=== PATIENT | male | born 1950 | race African-American/Black ===

== ENCOUNTER 2021-05-14 05:37 | Day surgery (SDC) | payer MEDICARE ==
[~2021-05-14] VITALS: Ht 180.3 cm; Wt 84.7 kg
[2021-05-14] VITALS (11 sets, daily range): BP systolic 115–157; BP diastolic 61–94; PULSE 56–79; TEMP 97.7–98.6
[2021-05-14] MEDS ORDERED: COREG 3.123.125 MG/T PO (06:20)
[2021-05-14] MEDS ORDERED: LIPITOR 40MG TA40 MG PO (06:20)
[2021-05-14] MEDS ORDERED: MASON NATURAL2000 IU PO (06:21)
[2021-05-14] MEDS ORDERED: VOLTAREN GEL 1%1 TU TP (06:22)
[2021-05-14] MEDS ORDERED: GLUCOPHAGE1000 MG PO (06:22)
[2021-05-14] MEDS ORDERED: PRINIVIL40 MG PO (06:22)
[2021-05-14] MEDS ORDERED: VIAGRA100 M1 PO (06:23)
[2021-05-14] MEDS ORDERED: LEVEMIR FLEX100 U/ML SQ (06:24)
[2021-05-14] MEDS ORDERED: NORVASC 10MG10 MG PO (06:24)
[2021-05-14] MEDS ORDERED: VICTOZA6 MG/ML SQ (06:25)
[2021-05-14] MEDS ORDERED: DESYREL 100MG100 MG PO (06:25)
[2021-05-14] MEDS ORDERED: PYRIDIUM 100MG100 MG PO (08:57)
--- NOTE | 2021-05-14 10:13 | NUR ---
PT TO ROOM 350 PER BED WITH REPORT FROM [facility] PAC[facility] @1727. PT IS A\O X3 IV TO LFA, CBI RUNNING SLOW WITH CLEAR URINE IN TOBIAS BAG. CATHETER 22FR TO LIGHT TENSION. PT DENIES PAIN AT THIS TIME. SENSATION TO T5. SPINAL EFFECTIVE. VSS, ASSESSMENTS COMPLETE. LUNGS CTA, BOWEL SOUNDS PRESENT.
--- NOTE | 2021-05-14 11:08 | NUR ---
PT TOOK AM MEDS PRIOR TO ARRIVAL.
--- NOTE | 2021-05-14 21:00 | NUR ---
Pt takes HS meds without problem. [facility] provided. Refuses Voltaren ointment for hands, previously used on his left knee. Has CBI infusing at moderate rate, urine pink. INT to left forearm, flushes easily. Pt denies pain at this time.
[2021-05-15 03:35] VITALS: BP 125/55; PULSE 69; TEMP 98.1
--- NOTE | 2021-05-15 06:00 | NUR ---
Pt's urine remains pink, no complaints offered.
[2021-05-15 07:41] VITALS: BP 132/72; PULSE 73; TEMP 97.5
--- NOTE | 2021-05-15 09:44 | NUR ---
PT EATING AND DRINKING. NEW ORDERS RECIEVED, PT TO DISCHARGE AFTER COMPLETION OF 6 BTTL ROUTINE. PT IS A/O X3. REDDISH DRAINAGE IN TOBIAS BAG.
[2021-05-15 12:00] VITALS: BP 130/65; PULSE 67; TEMP 98.2
--- NOTE | 2021-05-15 14:19 | NUR ---
DISCHARGE INSTSRUCTIONS REVIEWED WITH PT. QUESTIONS ANSWERED.
--- NOTE | 2021-05-15 15:27 | NUR ---
Attempt made to meet with the patient about dc plan and was unsuccessful due to the nursing staff being in at one try and patient getting dressed on second try. Patient is ambulating in the room with difficulties.
--- NOTE | 2021-05-15 15:48 | NUR ---
pt left unit ambulatory.
== END 2021-05-15 15:30 | disposition home or self-care (01) ==
LOC: SDCO 05:37 → SURG 09:40 → SDCO 16:00
DX: N40.1 Benign prostatic hyperplasia with lower urinary tract symptoms (principal); R39.14 Feeling of incomplete bladder emptying; R39.12 Poor urinary stream; R35.1 Nocturia; E11.9 Type 2 diabetes mellitus without complications; E78.00 Pure hypercholesterolemia, unspecified; I10 Essential (primary) hypertension; Z79.82 Long term (current) use of aspirin; Z79.4 Long term (current) use of insulin; Z79.899 Other long term (current) drug therapy; R97.20 Elevated prostate specific antigen [PSA]; N39.41 Urge incontinence; E78.5 Hyperlipidemia, unspecified; Z87.891 Personal history of nicotine dependence; G89.29 Other chronic pain; M19.90 Unspecified osteoarthritis, unspecified site
CPT/HCPCS: OP; J0690; J1100; J1815; J2250; J2405; J2704; J3010; J3410; J7030

== ENCOUNTER 2022-07-21 14:30 | Outpatient (RCR) | payer OTHER, MEDICARE ==
[~2022-07-21 14:30] MED LIST: COREG 3.123.125 MG/T PO; DESYREL 100MG100 MG PO; GLUCOPHAGE1000 MG PO; LEVEMIR FLEX100 U/ML SQ; LIPITOR 40MG TA40 MG PO; MASON NATURAL2000 IU PO; NORVASC 10MG10 MG PO; PLAVIX 75MG TAB75 MG PO; PRINIVIL40 MG PO; PYRIDIUM 100MG100 MG PO; VIAGRA100 M1 PO; VICTOZA6 MG/ML SQ; VOLTAREN GEL 1%1 TU TP
== END 2022-08-11 | disposition home or self-care (01) ==
LOC: MKS.ESL.PT
DX: G46.3 Brain stem stroke syndrome (principal)
CPT/HCPCS: G0283-GP

== ENCOUNTER → 2022-10-01 | Outpatient (CLI) | payer OTHER | LOC: COL.RAD 13:45 | DX: I69.391 Dysphagia following cerebral infarction (principal) ==

== ENCOUNTER 2022-10-05 09:00 | Outpatient (RCR) | payer OTHER, MEDICARE | END 2022-10-11 | disposition home or self-care (01) | LOC: WSST | DX: I69.391 Dysphagia following cerebral infarction (principal) ==

== ENCOUNTER 2023-02-26 13:24 | Outpatient (RCR) | payer OTHER, MEDICARE | END 2023-02-26 13:25 | disposition home or self-care (01) | LOC: MKS.ESL.PT 13:24 | DX: G46.3 Brain stem stroke syndrome (principal) ==